=== PATIENT | female | born 1955 | race Caucasian/White ===

== ENCOUNTER 2016-09-06 21:24 | Emergency (ER) | payer MEDICARE, OTHER ==
[~2016-09-06] VITALS: Ht 167.6 cm; Wt 54.4 kg
[~2016-09-06 21:24] MED LIST: ANTIBIOTIC; CALC-80 PO; CARV25TA PO; CARV6.25 PO; ESCT10T PO; ESTR0.62 PO; HYDR-690 PO; ZLP10T PO; digoxin
[2016-09-06] MEDS ORDERED: NS IV 1000 ML 1,000 ML IV ONE ×2 (21:49→23:11)
[2016-09-06 21:59] LABS: BASOPHILS % (AUTO) 0 % (0-10); EOSINOPHILS # (AUTO) 0.1 10^3/uL (0.0-0.3); EOSINOPHILS % (AUTO) 1 % (0-10); LYMPHOCYTES # (AUTO) 1.4 X 10^3 (1.0-4.0); LYMPHOCYTES % (AUTO) 13 % (12-44); MEAN CORPUSCULAR HEMOGLOBIN 36 PG (25-34); MEAN CORPUSCULAR HGB CONC 35 G/DL (32-36); MEAN CORPUSCULAR VOLUME 102 FL (80-99); MEAN PLATELET VOLUME 9.5 FL (7.4-10.4); MONOCYTES # (AUTO) 0.7 X 10^3 (0.0-1.0); MONOCYTES % (AUTO) 7 % (0-12); NEUTROPHILS # (AUTO) 8.2 X 10^3 (1.8-7.8); NEUTROPHILS % (AUTO) 79 % (42-75); PLATELET COUNT 255 10^3/uL (130-400); RED BLOOD COUNT 4.13 10^6/uL (4.35-5.85); RED CELL DISTRIBUTION WIDTH 14.5 % (10.0-14.5); WHITE BLOOD COUNT 10.4 10^3/uL (4.3-11.0)
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
[2016-09-06 22:14] LABS: ACETAMINOPHEN < 10 UG/ML (10-30); ALANINE AMINOTRANSFERASE 16 U/L (0-55); ALBUMIN 4.6 G/DL (3.2-4.5); ANION GAP 13 MMOL/L (5-14); ASPARTATE AMINO TRANSFERASE 23 U/L (5-34); BILIRUBIN,TOTAL 0.3 MG/DL (0.1-1.0); BLOOD UREA NITROGEN 13 MG/DL (7-18); BUN/CREATININE RATIO 12; CALCIUM 9.9 MG/DL (8.5-10.1); CARBON DIOXIDE 26 MMOL/L (21-32); CHLORIDE 103 MMOL/L (98-107); CREATININE SERUM 1.05 MG/DL (0.60-1.30); GFR ESTIMATED 53; GLUCOSE 107 MG/DL (70-105); MAGNESIUM 2.6 MG/DL (1.8-2.4); POTASSIUM 3.7 MMOL/L (3.6-5.0); SALICYLATE < 5.0 MG/DL (5.0-20.0); SODIUM 142 MMOL/L (135-145); TOTAL PROTEIN 7.3 G/DL (6.4-8.2)
[2016-09-06 22:16] LABS: ALCOHOL < 10 MG/DL (<10)
[2016-09-06 22:19] LABS: BILIRUBIN,URINE NEGATIVE (NEGATIVE); KETONES,URINE NEGATIVE (NEGATIVE); LEUKOCYTE ESTERASE ,URINE NEGATIVE (NEGATIVE); NITRITE,URINE NEGATIVE (NEGATIVE); PH,URINE 7 (5-9); PROTEIN,URINE NEGATIVE (NEGATIVE); UROBILINOGEN,URINE NORMAL (NORMAL)
[2016-09-06 22:21] LABS: SQUAMOUS EPITHELIAL CELL,UR RARE /HPF; WBC,URINE RARE /HPF
[2016-09-07 00:28] VITALS: BP 136/86
[2016-09-07 00:41] VITALS: BP 136/86
--- OUTSIDE RECORDS SUMMARY | 2016-09-30 07:19 | XMS REPORT | Continuity of Care Document ---
Author Author [facility] Organization [facility] Address Unknown Phone Unavailable Care Team Providers Care Window Caser Name Role Phone Babatunde Robbins PCP [phone] Source Comments Some departments are not documenting in the electronic medical record. If you do not see the information that you expected, contact Release of Information in the Health Information Management department at [phone] for further assistance in locating additional records.[facility] Active Allergies and Adverse Reactions Allergen Noted Date Severity Reactions Comments Penicillins 02/03/2015 Medium RASH Childhood pinpoint rash, hands peeled. Patient has tolerated Keflex in past. Current Medications Prescription Sig. Disp. Refills Start End Date Status Date zolpidem (AMBIEN) 10 mg Take 10 mg by mouth at Active tablet bedtime as needed for Sleep. carvedilol (COREG) 3.125 Take 1 Tab by mouth twice 180 Tab 3 03/07/20 Active mg tablet daily. 15 Active Problems Problem Noted Date Chronic systolic congestive heart failure (HCC) 03/07/2015 Chronic systolic congestive heart failure, NYHA class 2 (HCC) 03/07/2015 Essential hypertension 02/03/2015 History of cardiomyopathy 02/03/2015 Overview: 09/08/2014 - ECHO: LVEF ~ 55%. LV is normal in size and performance. No definite LVH. Normal-sized aortic root. Normal LA. ([facility] [facility] ICD (implantable cardioverter-defibrillator), biventricular, in situ 2014 Overview: 11/13/2010 - CRTD generator change: [facility] Unify 3231-40. RA (12/05/2004) Tendril SDX 1688TC / 46. RV (12/05/2004) Riata i 1590 / 65. LV (12/05/2004) Quicksite 1056T / 75. ([facility]). 02/2015-extraction, reimplantation. NON-RECALL ICD (03/2016) Hearing loss 02/03/2015 Overview: 09/08/2014 - CT of the Head: No CT evidence of an acute intracranial abnormality. Intracranial circulation appears intact without evidence of significant stenosis or vessel occlusion. No evidene of aneurysm formation. No pathologic intracranial enhancement. Dural venous sinuses are patent. Mild atherosclerosis at [facility] left carotid bifurcation. No significant stenosis within the neck evident. Degenerative features with the cervical spine. ([facility]). CHB (complete heart block) (HCC) 02/03/2015 Resolved Problems Problem Noted Date Resolved Date ICD (implantable cardioverter-defibrillator) lead failure 02/03/201506/08 Most Recent Encounters Date Type Specialty Providers Description 09/05/2016 Telephone Cardiology Umu Gray MD Follow-up Phone Call - medication question Social History Tobacco Use Types Packs/Day Years Used Date Never Smoker Smokeless Tobacco: Never Used Alcohol Use Drinks/Week oz/Week Comments No Last Filed Vital Signs Vital Sign Reading Time Taken Blood Pressure 118/80 04/09/2016 11:27 AM CDT Pulse 70 06/08/2015 12:14 PM [employer] Temperature 36.6 C (97.9 F) 02/12/2015 9:45 AM CDT Respiratory Rate - - Height 1.651 m (5' 5") 04/09/2016 11:27 AM CDT Weight 52.39 kg (115 lb 8 oz) 04/09/2016 11:27 AM CDT Body Mass Index 19.22 04/09/2016 11:27 AM CDT Oxygen Saturation 98% 02/12/2015 9:45 AM CDT Plan of Care Health Maintenance Due Date Last Done Comments Hepatitis C Screening 1954 Physical (Comprehensive) 1961 Exam Pertussis Vaccine 1965 Tetanus Vaccine 1971 Cervical Cancer Screening 1975 Breast Cancer Screening 1994 Colorectal Cancer 2004 Screening Shingles Vaccine 2014 Influenza Vaccine 02/08/2017 Results from Last 3 Months * DEVICE EVALUATION - REMOTE ICD (07/03/2016 10:57 AM) Component Value Range Device Implanted By Luanne Guerra M.D. ORA/EOL Indicator per ui programmer/transmitter indicated Generator Model # Aziza [place] 3365-40Q Generator Serial # [id number] Generator Implnat Date 02/11/15 Atrial Lead Model # Optisure [id number]/58cm Atrial Lead Serial # [id number] Atrial Lead Implant Date 02/11/15 RV Lead Model # Radhatet 1458Q/86cm RV Lead Serial # [id number] RV Lead Implant Date 02/11/15 Date of Last Programming 04/09/16 Device Mode DDDR Lower Rate Limit 55 (rest rate 50 bpm) Upper Rate Limit 150 Sensor Rate Limit 110 Pace AV Delay 170 Sense AV Delay 140 VT Detect Rate (bpm) 176 bpm VT Detect Rate Tx ATP x3, ATPX2, 25J, 36Jx2 FVT Detect Rate (bpm) 200 bpm FVT Detect Rate Tx ATPx1,25J,36J,40Jx2 VF Detect Rate (bpm) 250 bpm VF Detect Rate Tx ATPx1, 36J,40J,40jx4 Mode Switch (bpm) 170 Mode Switch Status On HF Patient Yes Date of Last Remote Check 03/15/16 Next Remote Check Due 06/2016 AT/AF Daily [place] Hours 6 hr episode, 12 hrs weekly Average Vent Rate during 100 AT/AF #BPM Average Vent Rate During 6 AT/AF #Hours Remote Monitoring? Yes Daily [place] Threshld On Alert? Average Venticular Rate On AT/AF On/Off VF Detection/Therapy Off On Generator [employer] Atrial Lead [employer] RV Lead [employer] Pacemaker Dependant Yes Generator Investigational No Atrial Lead No Investigational RV Lead Investigational No Device Type TOW MOTOR OPERATOR-D Wireless Generator Yes EP Device Followed by Dr. Guerra Name EP Device Followed By MAC Device [place] Juan Carlos On Demand Transmitter Compatible Narrative Current Monitoring Peirod: 06/21/16 through 09/18/16 [07/03/2016 10:58:07 AM - JOVANNA DANIELS] Scheduled Juan Carlos transmission received.Device function appears normal. Events noted since 03/10/16: Atrial:12 AMS events for <1% of the time.EGM's show 1:1 conduction, atrial driven with BiV-pacing at 185-202 bpm. Ventricular:None. Pt is BiVP >99% of the time. CorVue currently does not suggest fluid overload. Please see scanned data sheets for further review as needed.Pt is scheduled to follow sometime in March 2017 with LDB at the OP office.
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
== END 2016-09-07 00:41 | disposition home or self-care (01) ==
LOC: EDUNIT# 21:24 → ER 21:26
DX: T42.4X1A Poisoning by benzodiazepines, accidental (unintentional), initial encounter (principal); F13.10 Sedative, hypnotic or anxiolytic abuse, uncomplicated; F11.10 Opioid abuse, uncomplicated; R00.0 Tachycardia, unspecified; I42.9 Cardiomyopathy, unspecified; G47.00 Insomnia, unspecified; Z95.810 Presence of automatic (implantable) cardiac defibrillator; Y92.009 Unspecified place in unspecified non-institutional (private) residence as the place of occurrence of the external cause
CPT/HCPCS: 36415; 80053; 80306; 80320; 80329; 81000; 83735; 84443; 85025; 93005; 96360; 96361

== ENCOUNTER → 2016-10-08 | Outpatient (CLI) | payer MEDICARE | LOC: LAB 10:32 | PROVIDERS: ATTEND Internal Medicine | DX: F18.10 Inhalant abuse, uncomplicated (principal) | CPT/HCPCS: 80306 ==

== ENCOUNTER → 2016-10-30 | Outpatient (CLI) | payer MEDICARE ==
--- NOTE | 2016-10-30 11:07 | Diagnostic Imaging Report ---
EXAMINATION: PA and lateral views of the chest. INDICATION: Cardiomyopathy. Evaluate number of cardiac leads. FINDINGS: There are multiple cardiac leads with one looped in the SVC and terminating at the distal SVC level. There are other wires terminating in the right atrium and right ventricle and two wires appear to be in the coronary sinus. One of the coronary sinus leads extends around the left margin of the heart and terminates anteriorly. The other terminates posteriorly near the left cardiac margin. The lungs are hyperinflated but clear. The heart size is normal. No effusion or pneumothorax. The mediastinum and katia appear unremarkable. IMPRESSION: No acute process. Dictated by: Dictated on workstation # [id number]
--- NOTE | 2016-10-31 20:33 | ECHOCARDIOGRAPHY REPORT ---
DATE OF SERVICE: 10/29/2016 ECHOCARDIOGRAPHY REPORT ORDERING PHYSICIAN: Dr. Morales. PRIMARY PHYSICIAN: Dr. Robbins. CLINICAL DIAGNOSIS: Cardiomyopathy. MEASUREMENTS: 1. LV diameter diastolic 3.9. 2. IVS thickness, diastolic 0.9. 3. LVPW thickness, diastolic 0.7. 4. Aortic root 2.8. 5. Left atrium 3.1. DESCRIPTION: Two-dimensional echocardiography shows well-preserved global left ventricular systolic function without distinct regional wall motion abnormality. Aortic, mitral and tricuspid valve leaflets show good leaflet excursion. There is no significant pericardial effusion. Aortic valve appears to be trileaflet. Doppler imaging shows trivial tricuspid and mitral regurgitation. There is no Doppler evidence of any significant valvular stenosis. Echo dense structures within the right heart are consistent with pacemaker lead/leads. There is no evidence of any significant intracardiac shunt on this transthoracic echocardiographic study, although subcostal views are somewhat limited. Inferior vena cava does not appear to be dilated. Pulmonary artery systolic pressure is estimated to be 20 to 25 mmHg. CONCLUSIONS: 1. Well preserved global left ventricular systolic function with an ejection fraction of approximately 50% to 55%. 2. Trivial tricuspid and mitral regurgitation. There is no evidence of any significant valvular stenosis. 2. Pulmonary artery systolic pressure is estimated to be 20 to 25 mmHg. Job ID: [id number] DocumentID: [id number] Dictated Date: 10/30/2016 17:36:44 Design Engineer Date: 10/31/2016 00:42:27 Dictated By: NAKITA MORALES MD, MA, FACP, FACC,
== END ==
LOC: CARD 08:41
PROVIDERS: ATTEND Internal Medicine Cardiovascular Disease
DX: I42.0 Dilated cardiomyopathy (principal)
CPT/HCPCS: 71020; 93306

== ENCOUNTER → 2017-01-28 | Outpatient (CLI) | payer MEDICARE | LOC: LAB 11:15 | PROVIDERS: ATTEND Internal Medicine | DX: F11.20 Opioid dependence, uncomplicated (principal) | CPT/HCPCS: 80306 ==

== ENCOUNTER → 2023-03-19 | Outpatient (CLI) | payer MEDICARE, OTHER ==
[~2023-03-19] MED LIST changes: +CATHETER FLUSH 10 ML SYR IVP PRN; +REGADENOSON 0.4 MG/5 ML SYR IV ONE
[2023-03-19 08:54] VITALS: BP 152/76
--- NOTE | 2023-03-21 12:44 | STRESS TEST ---
DATE OF SERVICE: 03/19/2023 RESTING AND POST REGADENOSON TECHNETIUM-99M TETROFOSMIN SPECT CT IMAGING ORDERING PHYSICIAN: Marlys Castillo APRN. PRIMARY PHYSICIAN: Dr. Robbins. OTHER PHYSICIAN: Willis Cuello MD; UZMA; SANKET; MARIBEL CLINICAL DIAGNOSIS: Dilated cardiomyopathy. Baseline images were carried out after injection of 10.98 mCi of technetium-99m tetrofosmin. This was followed by 0.4 mg of regadenoson and 30.7 mCi of technetium-99m tetrofosmin for stress imaging. The electrocardiogram showed sinus rhythm with a paced ventricular rhythm. The electrocardiogram did not change significantly with the regadenoson infusion. The patient tolerated the procedure well. Review of images at rest and following stress does not indicate any distinct perfusion defects consistent with significant myocardial ischemia or infarction. Gated images show normal global left ventricular systolic function with normal regional wall motion. Left ventricular ejection fraction is calculated to be 62%. Left ventricular end-diastolic volume is 43 mL. TID is absent (1.18). CONCLUSIONS: 1. No evidence of significant myocardial ischemia or infarction on this study. 2. Normal regional wall motion. 3. Normal global left ventricular systolic function with a calculated ejection fraction of 62%. Job ID: [id number] DocumentID: [id number] Dictated Date: 03/21/2023 09:16:43 Environmental Permitting Specialist Date: 03/21/2023 12:43:00 Dictated By: WILLIS CUELLO MD; UZMA; GUALBERTOP; MARIBEL;
== END ==
LOC: CARD 06:51
PROVIDERS: ATTEND Nurse Practitioner Family
DX: I42.0 Dilated cardiomyopathy (principal)
CPT/HCPCS: 78452; 93017; A9502